=== PATIENT | female | born 1955 | race Caucasian/White ===

== ENCOUNTER → 2016-09-23 | Outpatient (CLI) | payer BC ==
[2016-09-23 13:20] LABS: URINE BILIRUBIN - DIPSTICK NEGATIVE (NEG); URINE BLOOD TRACE-INTACT (NEG)
[2016-09-23 13:24] LABS: LYMPH # 2.5 K/mm3 (0.7-4.5); LYMPH % 33.9 % (10-50.0)
[2016-09-23 13:41] LABS: HEMOGLOBIN 14.1 g/dL (12.2-16.2)
[2016-09-23 14:22] LABS: BUN 14 mg/dL (7-18)
[2016-09-23 14:24] LABS: GFR (ESTIMATED) 73 ML/MIN (59-)
--- NOTE | 2016-09-23 18:32 | RADIOLOGY REPORT PS360 ---
CHEST(2 VIEWS-NOT PORTABLE) ORDERING PHYSICIAN : Joe Deutsch MD PATIENT AGE: 61 years GENDER: Female INDICATION: Hypertension HTN PROCEDURE: CHEST(2 VIEWS-NOT PORTABLE) COMPARISON: None available FINDINGS: Lungs well expanded and clear with no active disease evident. No pneumothorax. No pleural effusion. Heart normal to upper normal size. Normal pulmonary vascularity. Hilar and mediastinal structures appear satisfactory. Chest wall unremarkable. T-spine intact. IMPRESSION Lungs clear No active disease in the chest...
== END ==
LOC: RAD 10:54 → LAB 10:54
PROVIDERS: Internal Medicine
DX: Z01.818 Encounter for other preprocedural examination (principal); M17.11 Unilateral primary osteoarthritis, right knee